=== PATIENT | female | born 1945 | race Two or more races ===

== ENCOUNTER 2017-03-18 14:06 | Outpatient (CLI) | payer MEDICARE, BC ==
[2017-03-18] MEDS ORDERED: DEXAMETHASONE SOD PHOSPHATE 4 MG/ML VIAL IV ONE (14:07)
[2017-03-18] MEDS ORDERED: ETHYL CHLORIDE SPRAY 1 EA BOTTLE TP ONE (14:07)
== END 2017-03-18 23:59 | disposition home or self-care (01) ==
LOC: WOU 14:06
PROVIDERS: ATTEND Podiatrist Foot & Ankle Surgery
DX: G57.62 Lesion of plantar nerve, left lower limb (principal); M20.12 Hallux valgus (acquired), left foot; M20.11 Hallux valgus (acquired), right foot; M20.5X2 Other deformities of toe(s) (acquired), left foot; M65.9 Synovitis and tenosynovitis, unspecified; M77.42 Metatarsalgia, left foot
CPT/HCPCS: 20550; J1100; J3490

== ENCOUNTER 2020-04-30 14:00 | Outpatient (CLI) | payer BC | END 2020-04-30 23:59 | disposition home or self-care (01) | LOC: WOU 14:00 | PROVIDERS: ATTEND Podiatrist Foot & Ankle Surgery | DX: M72.2 Plantar fascial fibromatosis (principal); M76.829 Posterior tibial tendinitis, unspecified leg; L60.0 Ingrowing nail; M79.672 Pain in left foot; M79.671 Pain in right foot | CPT/HCPCS: G0463 ==